=== PATIENT | female | born 1960 | race Caucasian/White ===

== ENCOUNTER 2025-05-06 08:56 | Day surgery (SDC) | payer BC ==
[2025-05-05 13:55] VITALS: BMI 32.9
[2025-05-06] MEDS: IV FLUID CONTINUATION 1,000 ML IV ONE (09:09)
[2025-05-06 09:13] VITALS: TEMP 98.3
[2025-05-06] MEDS: LACTATED RINGERS 1,000 ML IV SCH (09:20)
--- NOTE | 2025-05-06 09:42 | P.GSHP ---
History of Present Illness H&P Date: 05/06/25 CHIEF COMPLAINT: Colon screen HISTORY OF PRESENT ILLNESS: The patient is a 64-year-old female who presents for colon screen. Lower endoscopy was offered for further evaluation and management. PAST MEDICAL HISTORY: Please see list. PAST SURGICAL HISTORY: Please see list. MEDICATIONS: Please see list. ALLERGIES: Please see list. SOCIAL HISTORY: No illicit drug use FAMILY HISTORY: No reports of Crohn disease or ulcerative colitis. REVIEW OF ORGAN SYSTEMS: CONSTITUTIONAL: No reports of fevers or chills. PHYSICAL EXAM: VITAL SIGNS: Stable GENERAL: Well-developed pleasant in no acute distress. HEENT: No scleral icterus. Extraocular movements grossly intact. Moist buccal mucosa. NECK: Supple without lymphadenopathy. CHEST: Unlabored respirations. Equal bilateral excursions. CARDIOVASCULAR: Regular rate and rhythm. Distal 2+ pulses. ABDOMEN: Soft, nontender, nondistended. MUSCULOSKELETAL: No clubbing, cyanosis, or edema. ASSESSMENT: 1. Colon screen. PLAN: 1. Recommend proceeding with a lower endoscopy Past Medical History Past Medical History: Deep Vein Thrombosis (DVT), Hyperlipidemia, Hypertension Additional Past Medical History / Comment(s): rt leg unk cause 2020 History of Any Multi-Drug Resistant Organisms: None Reported Past Surgical History: Back Surgery, Hysterectomy Additional Past Surgical History / Comment(s): cyst removed from neck,genital warts removed, lt carpel tunnel Additional Past Anesthesia/Blood Transfusion Reaction / Comment(s): with cyst removal from neck felt "like was run over by a mat truck 2 days afterwards". no hx blood transfusion Smoking Status: Current every day smoker - Past Family History Mother Family Medical History: No Reported History Medications and Allergies Home Medications Medication Instructions Recorded Confirmed Type Apixaban [Eliquis] 2.5 mg PO BID 05/05/25 05/06/25 History Atorvastatin Calcium 10 mg PO DAILY 05/05/25 05/06/25 History Calcium 1800mg W/ Vit D 1 dose PO DAILY 05/05/25 05/06/25 History Furosemide [Lasix] 20 mg PO DAILY 05/05/25 05/06/25 History Ibandronate Sodium [Boniva] 150 mg PO QMONTHLY 05/05/25 05/06/25 History Losartan Potassium 100 mg PO QAM 05/05/25 05/06/25 History amLODIPine [Norvasc] 5 mg PO BID 05/05/25 05/06/25 History Allergies Allergy/AdvReac Type Severity Reaction Status Date / Time cheap metal jewelry Allergy Rash/Hives Uncoded 05/06/25 09:06 Surgical - Exam Vital Signs Temp Pulse Resp BP Pulse Ox 98.3 F 91 18 124/66 96 05/06/25 09:05 05/06/25 09:05 05/06/25 09:05 05/06/25 09:05 05/06/25 09:05
[2025-05-06] MEDS ORDERED: PROPOFOL 10 MG/ML 20 ML VIAL IV ONE (10:47)
--- NOTE | 2025-05-06 11:17 | P.PCN ---
Date of Procedure: 05/06/25 Description of Procedure: PREOPERATIVE DIAGNOSIS: Personal history of colon polyps Colonoscopy screening POSTOPERATIVE DIAGNOSIS: Tubular adenoma transverse colon Anal mass OPERATION: Colonoscopy to the ileocecal valve and appendiceal orifice, cecum Colonoscopy with hot snare polypectomy SURGEON: Ashlee Baldwin MD. ANESTHESIA: MAC. INDICATIONS: The patient is an 64-year-old male who presents personal history of colon polyps. Last colonoscopy 5 years. Benefits and risks were described and informed consent was obtained. DESCRIPTION OF PROCEDURE: The patient had undergone Suprep. The patient had been brought into the operating room and laid in the left lateral decubitus position. After adequate intravenous sedation, the rectum was examined with 2% lidocaine jelly. Anal mass was found. The rectal tone was within normal limits. No lesions were palpated in the rectal vault. An Olympus colonoscope was advanced until the cecum, ileocecal valve and appendiceal orifice were clearly viewed. The prep was good. No large sigmoid diverticulosis was encountered. Colonic polyps were found and removed. No evidence of focal colitis was found. Retroflexion of the scope demonstrated grade 1 internal hemorrhoids without active bleeding or inflammation. The colon was desufflated. The patient had tolerated the procedure well. Withdrawal time was over 6 minutes. FINDINGS: Aronchick preparation quality scale 2 (1-5) Internal hemorrhoids, grade 1 No external hemorrhoids Anal lesion/mass, 10 mm, recommend resection No arteriovenous malformations. No large sigmoid diverticulosis Removal of 3 polyps: - Snare polypectomy transverse colon x 3, 5to 8 mm tubulovillous adenoma No focal colitis. RECOMMENDATIONS: Recommend excision of anal lesion/mass for risk of malignancy Repeat colonoscopy 3 years, 2027 Plan - Discharge Summary Discharge Rx Participant: No New Discharge Prescriptions: Continue Ibandronate Sodium [Boniva] 150 mg PO QMONTHLY Losartan Potassium 100 mg PO QAM Apixaban [Eliquis] 2.5 mg PO BID Calcium 1800mg W/ Vit D 1 dose PO DAILY Atorvastatin Calcium 10 mg PO DAILY amLODIPine [Norvasc] 5 mg PO BID Furosemide [Lasix] 20 mg PO DAILY Discharge Medication List Apixaban [Eliquis] 2.5 mg PO BID 05/05/25 [History] Atorvastatin Calcium 10 mg PO DAILY 05/05/25 [History] Calcium 1800mg W/ Vit D 1 dose PO DAILY 05/05/25 [History] Furosemide [Lasix] 20 mg PO DAILY 05/05/25 [History] Ibandronate Sodium [Boniva] 150 mg PO QMONTHLY 05/05/25 [History] Losartan Potassium 100 mg PO QAM 05/05/25 [History] amLODIPine [Norvasc] 5 mg PO BID 05/05/25 [History] Follow up Appointment(s)/Referral(s): Ashlee Baldwin MD [STAFF PHYSICIAN] - 06/02/25 1:30 pm Patient Instructions/Handouts: Colorectal Polyps (GEN) Activity/Diet/Wound Care/Special Instructions: Recommend excision of anal lesion. Repeat colonoscopy 3 years, 2027 Discharge Disposition: HOME SELF-CARE
[2025-05-06 11:24] VITALS: RESP 16
[2025-05-06 11:39] VITALS: BP 114/65; PULSE 73
== END 2025-05-06 12:05 | disposition home or self-care (01) ==
LOC: ORWHC2ENDO 08:56
PROVIDERS: ATTEND Surgery Plastic and Reconstructive Surgery
DX: Z12.11 Encounter for screening for malignant neoplasm of colon (principal); D12.3 Benign neoplasm of transverse colon; K64.0 First degree hemorrhoids; I82.409 Acute embolism and thrombosis of unspecified deep veins of unspecified lower extremity; I10 Essential (primary) hypertension; E78.5 Hyperlipidemia, unspecified; F17.200 Nicotine dependence, unspecified, uncomplicated; Z90.710 Acquired absence of both cervix and uterus; Z79.01 Long term (current) use of anticoagulants; Z79.899 Other long term (current) drug therapy
CPT/HCPCS: 88305; 45385; J2704